=== PATIENT | male | born 1980 | race Two or more races ===

== ENCOUNTER 2023-02-20 22:34 | Emergency (ER) | payer OTHER ==
[~2023-02-20] VITALS: Ht 185.4 cm; Wt 83.5 kg
== END 2023-02-21 08:41 | disposition home or self-care (01) ==
LOC: ER 22:34
DX: S82.491A Other fracture of shaft of right fibula, initial encounter for closed fracture (principal); S90.01XA Contusion of right ankle, initial encounter; S93.491A Sprain of other ligament of right ankle, initial encounter; W50.2XXA Accidental twist by another person, initial encounter; Y93.79 Activity, other specified sports and athletics; Y92.89 Other specified places as the place of occurrence of the external cause; Y99.8 Other external cause status; Z20.822 Contact with and (suspected) exposure to COVID-19